=== PATIENT | female | born 1980 | race Hispanic/Latino ===

== ENCOUNTER 2022-06-24 18:56 | Emergency (ER) | payer OTHER ==
[~2022-06-24] VITALS: Ht 157.5 cm; Wt 72.6 kg
[2022-06-24] MEDS ORDERED: ONDANSETRON HCL INJ 2MG/ML 2ML 2 MG/ML VIAL IV STA (20:28)
[2022-06-24] MEDS ORDERED: SODIUM CHLORIDE 0.9% 500ML 500 ML IV ONE (20:30)
[2022-06-24] MEDS ORDERED: KETOROLAC TROMETHAMINE 30 MG/ML VIAL IV STA (20:30)
[2022-06-24] MEDS ORDERED: KETOROLAC TROMETHAMINE 30 MG/ML VIAL ONE (20:54)
[2022-06-24] MEDS ORDERED: DICYCLOMINE HCL 10 MG CAP ONE (20:54)
[2022-06-24] MEDS ORDERED: ONDANSETRON HCL INJ 2MG/ML 2ML 2 MG/ML VIAL ONE (20:55)
[2022-06-24] MEDS ORDERED: IOPAMIDOL 370 MG/ML 100 ML INFUS..BTL INJ ONE (20:57)
[2022-06-24] MEDS ORDERED: ONDANSETRON ODT4 MG PO (22:29)
[2022-06-24] MEDS ORDERED: DICYCLOMINE HCL20 MG PO (22:30)
[2022-06-24] MEDS ORDERED: LEVSIN-SL0.125 MG SL (22:31)
[2022-06-24 22:44] VITALS: BP 100/69
[2022-06-25] MEDS ORDERED: DICYCLOMINE HCL 10 MG CAP PO SCH (09:00)
== END 2022-06-24 22:44 | disposition home or self-care (01) ==
LOC: FSED 19:03
DX: R10.30 Lower abdominal pain, unspecified (principal); K52.9 Noninfective gastroenteritis and colitis, unspecified; R11.0 Nausea
CPT/HCPCS: 74177; 80048; 80076; 81003; 81025; 85025; 96374; 96376; 99284; J1885; J2405; Q9967